=== PATIENT | female | born 1985 | race Caucasian/White ===

== ENCOUNTER 2017-05-06 00:57 | Observation (INO) | payer MEDICAID ==
[~2017-05-06] VITALS: Ht 157.5 cm; Wt 61.2 kg
[2017-05-06] MEDS ORDERED: IRON-1 PO (02:01)
[2017-05-06] MEDS ORDERED: PREN1TAB78 PO (02:01)
[2017-05-06 02:18] LABS: CLARITY URINE CLEAR (CLEAR); COLOR URINE YELLOW (YELLOW); GLUCOSE URINE NEGATIVE (NEGATIVE); KETONES URINE NEGATIVE (NEGATIVE); LEUKOCYTE ESTERASE URINE 3+ (NEGATIVE); NITRITE URINE NEGATIVE (NEGATIVE); OCCULT BLOOD URINE NEGATIVE (NEGATIVE); PH URINE 6.5 (4.5-8.0); PROTEIN URINE NEGATIVE (NEGATIVE); SPECIFIC GRAVITY URINE 1.008 (1.005-1.030); UROBILINOGEN URINE 0.2 E.U./dL (0.2-1.0)
[2017-05-06] MEDS ORDERED: LACTATED RINGERS 1,000 ML IV SCH (03:15)
[2017-05-06] MEDS ORDERED: CEFAZOLIN 2,000 MG in DEXT 5% WATER 100 ML IV NR (04:00)
== END 2017-05-06 05:58 | disposition home or self-care (01) ==
LOC: L&D 00:57
PROVIDERS: ADMIT Obstetrics & Gynecology; ATTEND Obstetrics & Gynecology
DX: O26.893 Other specified pregnancy related conditions, third trimester (principal); R10.30 Lower abdominal pain, unspecified; M54.9 Dorsalgia, unspecified; Z3A.37 37 weeks gestation of pregnancy
CPT/HCPCS: 81001; 96361; 96365; 99281; G0378; J0690; J7120; 96360; J7060

== ENCOUNTER 2017-05-13 19:55 | Inpatient (IN) | payer MEDICAID ==
[~2017-05-13] VITALS: Ht 157.5 cm; Wt 68.9 kg
[~2017-05-13 19:55] MED LIST: IRON-1 PO; PREN1TAB78 PO
[2017-05-13] MEDS ORDERED: DEXT 5%/LR + PITOCIN 20UNITS/L 1,000 ML IV SCH (20:46)
[2017-05-13] MEDS ORDERED: CARBOPROST TROMETHAMINE 250 MCG/ML AMPUL IM PRN (21:00)
[2017-05-13] MEDS ORDERED: NALOXONE HCL 0.4 MG/ML 1ML VIAL IM PRN (21:00)
[2017-05-13] MEDS ORDERED: LIDOCAINE HCL 1% 20ML VIAL (Pyxis) INJ INFIL SCH (21:00)
[2017-05-13] MEDS ORDERED: MISOPROSTOL 100MCG TABLET VG SCH (21:00)
[2017-05-13] MEDS ORDERED: METHYLERGONOVINE MALEATE 0.2 MG/ML IM PRN (21:00)
[2017-05-13] MEDS ORDERED: BUTORPHANOL TARTRATE 2 MG/ML VIAL IV PRN (21:00)
[2017-05-13 21:41] LABS: BASOPHILS % 0.3 % (0.0-2.0); EOSINOPHILS % 0.5 % (0.0-5.0); HEMATOCRIT. 33.7 % (36.0-48.0); HEMOGLOBIN. 11.8 g/dL (12.0-16.0); LYMPHOCYTES % 31.6 % (20.0-50.0); MEAN CORPUSCULAR HEMOGLOBIN 35.7 pg (28.0-32.0); MEAN CORPUSCULAR VOLUME 102.1 fL (81.0-99.0); MEAN PLATELET VOLUME 9.5 fl (7.4-10.4); MONOCYTES % 12.3 % (2.0-8.0); NEUTROPHILS % 55.3 % (40.0-76.0); PLATELET 170 x1000/uL (130-400); RED BLOOD CELL COUNT 3.31 mill/uL (4.2-5.4); RED CELL DISTRIBUTION WIDTH 13.2 % (11.6-14.6)
[2017-05-13 21:42] LABS: CLARITY URINE CLEAR (CLEAR); COLOR URINE YELLOW (YELLOW); GLUCOSE URINE NEGATIVE (NEGATIVE); KETONES URINE NEGATIVE (NEGATIVE); LEUKOCYTE ESTERASE URINE NEGATIVE (NEGATIVE); NITRITE URINE NEGATIVE (NEGATIVE); OCCULT BLOOD URINE TRACE (NEGATIVE); PH URINE 6.5 (4.5-8.0); PROTEIN URINE NEGATIVE (NEGATIVE); SPECIFIC GRAVITY URINE 1.009 (1.005-1.030); UROBILINOGEN URINE 0.2 E.U./dL (0.2-1.0)
[2017-05-13 21:44] LABS: INR 0.9; PARTIAL THROMBOPLASTIN TIME 23.8 sec (23.4-31.0); PROTHROMBIN TIME 9.7 sec (9.4-11.6)
[2017-05-13] MEDS ORDERED: PNEUMOCOCCAL 23-VAL P-SAC VAC 0.5 ML IM ONE (22:00)
[2017-05-13] MEDS ORDERED: INFLUENZA VIRUS VACCINE 0.5ML SYR IM ONE (22:00)
[2017-05-13] MEDS ORDERED: ACETAMINOPHEN 325MG TABLET PO SCH (22:00)
[2017-05-13] MEDS: LACTATED RINGERS 1,000 ML IV SCH (22:17)
[2017-05-14] MEDS: LACTATED RINGERS 1,000 ML IV SCH (06:05)
[2017-05-14] MEDS ORDERED: DEXT 5%/LR + PITOCIN 20UNITS/L 1,000 ML IV SCH (12:35)
[2017-05-14] MEDS ORDERED: RHO(D) IMMUNE GLOBULIN 300 MCG/SYR IM PRN (12:45)
[2017-05-14] MEDS ORDERED: ACETAMINOPHEN WITH CODEINE 300/30MG TABLET PO PRN (12:45)
[2017-05-14] MEDS ORDERED: BENZOCAINE/LANOLIN/ALOE VERA SPRAY TOP PRN (12:45)
[2017-05-14] MEDS ORDERED: IBUPROFEN 400MG TABLET PO PRN (12:45)
[2017-05-14] MEDS: IBUPROFEN 800MG TABLET PO PRN ×2 (15:09→21:18)
[2017-05-14 15:10] VITALS: BP 94/60
[2017-05-14 15:40] VITALS: BP 101/63
[2017-05-15] VITALS: BP 98/50
[2017-05-15] MEDS: IBUPROFEN 800MG TABLET PO PRN ×2 (03:52→10:50)
[2017-05-15 05:55] LABS: BASOPHILS % 0.3 % (0.0-2.0); EOSINOPHILS % 0.3 % (0.0-5.0); HEMOGLOBIN. 9.2 g/dL (12.0-16.0); LYMPHOCYTES % 22.2 % (20.0-50.0); MEAN CORPUSCULAR HEMOGLOBIN 36.3 pg (28.0-32.0); MEAN CORPUSCULAR VOLUME 102.2 fL (81.0-99.0); MEAN PLATELET VOLUME 9.4 fl (7.4-10.4); MONOCYTES % 9.7 % (2.0-8.0); NEUTROPHILS % 67.5 % (40.0-76.0); PLATELET 155 x1000/uL (130-400); RED BLOOD CELL COUNT 2.54 mill/uL (4.2-5.4); RED CELL DISTRIBUTION WIDTH 13.3 % (11.6-14.6)
[2017-05-15 06:01] LABS: *AMPHETAMINES SCREEN URINE NEGATIVE (NEGATIVE); *BARBITURATES SCREEN URINE NEGATIVE (NEGATIVE); *BENZODIAZEPINES SCREEN URINE NEGATIVE (NEGATIVE); *COCAINE SCREEN URINE NEGATIVE (NEGATIVE); CANNABINOID URINE SCREEN NEGATIVE (NEGATIVE); METHADONE URINE SCREEN NEGATIVE (NEGATIVE); OPIATES URINE SCREEN NEGATIVE (NEGATIVE); PHENCYCLIDINE URINE SCREEN NEGATIVE (NEGATIVE)
[2017-05-15 08:00] VITALS: BP 98/50
[2017-05-15 16:14] VITALS: BP 92/44
[2017-05-15] MEDS ORDERED: LANOLIN OINT 0.25 GM TUBE TOP PRN (19:45)
[2017-05-16] VITALS: BP 95/54
[2017-05-16] MEDS ORDERED: TETANUS, DIPHTHERIA, PERTUSSIS VAC/PF 0.5ML (>7YR OLD) IM ONE
[2017-05-16 08:00] VITALS: BP 99/59
[2017-05-16 11:08] VITALS: BP 99/59
== END 2017-05-16 13:30 | disposition home or self-care (01) | DRG 560 ==
LOC: L&D 19:55 → OBSVTOIN 19:55 → 7EST PP/OB 05-14 14:57
PROVIDERS: ADMIT Obstetrics & Gynecology; ATTEND Obstetrics & Gynecology
PROC: 0W8NXZZ Division of Female Perineum, External Approach (ICD-10-PCS; 2017-05-14)
PROC: 10D07Z6 Extraction of Products of Conception, Vacuum, Via Natural or Artificial Opening (ICD-10-PCS; principal; 2017-05-14 12:14)
PROC: 3E0234Z Introduction of Serum, Toxoid and Vaccine into Muscle, Percutaneous Approach (ICD-10-PCS; 2017-05-16)
DX: O69.81X0 Labor and delivery complicated by cord around neck, without compression, not applicable or unspecified (principal); D64.9 Anemia, unspecified; O99.03 Anemia complicating the puerperium; Z37.0 Single live birth; Z3A.39 39 weeks gestation of pregnancy; Z79.899 Other long term (current) drug therapy; O66.5 Attempted application of vacuum extractor and forceps; Z23 Encounter for immunization
CPT/HCPCS: 36415; 76815; 80305; 81001; 85025; 85610; 85730; 86592; 86703; 86850; 86900; 87340; 90686; 90715; 90732; J2590; J3490; J7120

== ENCOUNTER 2017-06-14 12:40 | Emergency (ER) | payer MEDICAID ==
[~2017-06-14] VITALS: Ht 157.5 cm; Wt 59.0 kg
[2017-06-14] MEDS ORDERED: KETOROLAC 60MG/2ML VIAL IM ONE (14:00)
[2017-06-14 14:54] VITALS: BP 94/68
== END 2017-06-14 14:55 | disposition home or self-care (01) ==
LOC: ER 13:16
DX: R51 Headache (principal); M54.2 Cervicalgia; R50.9 Fever, unspecified
CPT/HCPCS: 96372; 99283; J1885

== ENCOUNTER 2019-01-25 06:46 | Day surgery (SDC) | payer MEDICAID ==
[~2019-01-25] VITALS: Ht 157.5 cm; Wt 63.0 kg
[2019-01-25] MEDS ORDERED: MIDAZOLAM HCL 2 MG/2 ML VIAL ONE (07:56)
[2019-01-25] MEDS ORDERED: ROCURONIUM BROMIDE 10MG/ML VIAL 5ML IV ONE (07:56)
[2019-01-25] MEDS ORDERED: FENTANYL CITRATE/PF 50MCG/ML 2ML VIAL ONE (07:56)
[2019-01-25] MEDS ORDERED: PROPOFOL 200MG/20ML VIAL IV ONE (07:56)
[2019-01-25] MEDS ORDERED: SUCCINYLCHOLINE CHLORIDE 200MG/10ML IV ONE (07:56)
[2019-01-25] MEDS ORDERED: DEXAMETHASONE 4MG/ML 1ML VIAL ONE (07:57)
[2019-01-25] MEDS ORDERED: LACTATED RINGERS 1,000 ML IV SCH (08:00)
[2019-01-25 08:10] LABS: BASOPHILS % 0.4 % (0.0-2.0); EOSINOPHILS % 1.3 % (0.0-5.0); HEMATOCRIT. 39.7 % (36.0-48.0); HEMOGLOBIN. 13.5 g/dL (12.0-16.0); LYMPHOCYTES % 39.1 % (20.0-50.0); MEAN CORPUSCULAR HEMOGLOBIN 33.2 pg (28.0-32.0); MEAN CORPUSCULAR VOLUME 97.6 fL (81.0-99.0); MEAN PLATELET VOLUME 9.4 fl (7.4-10.4); NEUTROPHILS % 49.2 % (40.0-76.0); PLATELET 178 x1000/uL (130-400); RED BLOOD CELL COUNT 4.07 mill/uL (4.2-5.4); RED CELL DISTRIBUTION WIDTH 13.8 % (11.6-14.6)
[2019-01-25 08:14] LABS: CLARITY URINE CLOUDY (CLEAR); COLOR URINE YELLOW (YELLOW); KETONES URINE NEGATIVE (NEGATIVE); LEUKOCYTE ESTERASE URINE TRACE (NEGATIVE); NITRITE URINE NEGATIVE (NEGATIVE); OCCULT BLOOD URINE NEGATIVE (NEGATIVE); PROTEIN URINE NEGATIVE (NEGATIVE); SPECIFIC GRAVITY URINE 1.024 (1.005-1.030)
[2019-01-25 08:18] LABS: UCG SCREEN NEGATIVE
[2019-01-25 08:20] LABS: PARTIAL THROMBOPLASTIN TIME 27.5 sec (23.4-31.0); PROTHROMBIN TIME 10.2 sec (9.6-11.0)
[2019-01-25] MEDS ORDERED: CEFAZOLIN SODIUM 1000MG/VIAL ONE (08:31)
[2019-01-25] MEDS ORDERED: METOCLOPRAMIDE HCL 10MG/2ML VIAL ONE (08:31)
[2019-01-25] MEDS ORDERED: SODIUM CHLORIDE 0.9% 10ML VIAL ONE (08:31)
[2019-01-25] MEDS ORDERED: ONDANSETRON HCL 4MG/2ML INJ ONE ×2 (08:31→12:27)
[2019-01-25] MEDS ORDERED: KETOROLAC 30MG/ML VIAL ONE (09:39)
[2019-01-25] MEDS ORDERED: HYDROCODONE/ACETAMINOPHEN 5/325MG TABLET PO PRN (10:00)
[2019-01-25] MEDS ORDERED: IBUPROFEN 800MG TABLET PO PRN (10:00)
[2019-01-25] MEDS ORDERED: HYDROMORPHONE HCL/PF 2MG/ML CPJ IV PRN (10:15)
[2019-01-25 10:52] VITALS: BP 105/73
[2019-01-25] MEDS ORDERED: ONDANSETRON HCL 4MG/2ML INJ IM SCH (12:30)
== END 2019-01-25 12:50 | disposition home or self-care (01) ==
LOC: OR 06:46
PROVIDERS: ATTEND Obstetrics & Gynecology
DX: Z30.2 Encounter for sterilization (principal); Z30.432 Encounter for removal of intrauterine contraceptive device; Z79.899 Other long term (current) drug therapy
CPT/HCPCS: 36415; 58301; 58670; 81003; 81025; 85025; 85610; 85730; 88300; C1725; J0330; J0690; J1100; J1170; J1885; J2250; J2405; J2704; J2765; J3010; J3490